=== PATIENT | female | born 1965 | race Caucasian/White ===

== ENCOUNTER 2016-10-26 20:47 | Emergency (ER) | payer OTHER ==
[~2016-10-26] VITALS: Ht 165.1 cm; Wt 59.0 kg
[2016-10-26 21:00] VITALS: BP 132/80
--- NOTE | 2016-10-26 21:44 | RADIOLOGY REPORT ---
EXAMINATION: XR CHEST CLINICAL INFORMATION: Cough. COMPARISON: None TECHNIQUE: 2 views of the chest were obtained. FINDINGS: No significant abnormality is noted involving the heart, lungs, mediastinum, bony thorax or soft tissues. IMPRESSION: Unremarkable chest examination.
--- NOTE | 2016-10-26 22:13 | ED INFLUENZA/URI COMPLAINT ---
History of Present Illness General Chief Complaint: Upper Respiratory Sx/Fever Stated Complaint: COUGHING,CHEST CONGESTION Vital Signs & Intake/Output Vital Signs & Intake/Output Vital Signs Date Time Temp Pulse Resp B/P Pulse O2 O2 Flow FiO2 Ox Delivery Rate 10/26 2100 97.9 97 15 132/80 100 Room Air Allergies Coded Allergies: Penicillins (Severe, HIVES 10/26/16) Triage Note: PT TO ED FOR STUFFY NOSE AND COUGH FOR PAST FEW DAYS. 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
--- NOTE | 2016-10-26 22:13 | ED INFLUENZA/URI COMPLAINT ---
History of Present Illness General Chief Complaint: Upper Respiratory Sx/Fever Stated Complaint: COUGHING,CHEST CONGESTION Source: patient Exam Limitations: no limitations Vital Signs & Intake/Output Vital Signs & Intake/Output Vital Signs Date Time Temp Pulse Resp B/P Pulse O2 O2 Flow FiO2 Ox Delivery Rate 10/26 2100 97.9 97 15 132/80 100 Room Air Allergies Coded Allergies: Penicillins (Severe, HIVES 10/26/16) Reconcile Medications Albuterol Sulfate (Ventolin Hfa) 90 MCG HFA.AER.AD 2 PUF INH Q4-6 PRN PRN COUGH Benzonatate (Tessalon Perle) 100 MG CAPSULE 1 CAP PO TID PRN COUGH Fluticasone Propionate (Flonase Allergy Relief) 50 MCG/ACTUATION SPRAY.SUSP 1 SPRAY HARINDER DAILY PRN CONGESTION Triage Note: PT TO ED FOR STUFFY NOSE AND COUGH FOR PAST FEW DAYS. Triage Nurses Notes Reviewed? yes Onset: Gradual Duration: constant Timing: recent history Severity: moderate Severity Numbers: 5 Prior Episodes/Possible Cause: chronic episodes No Modifying Factors: none HPI: Patient is a 51-year-old female who presents emergency room with a 2 to three- day history of nonproductive cough runny nose not feeling well patient is AN EVERYDAY smoker Denies any positive sick contacts. Denies any chest pain and arm pain jaw pain nausea vomiting sore throat Patient states that she is homeless and was requesting housing (DANIEL URBINA) Past History Travel History Traveled to [place] past 21 day No Medical History Any Pertinent Medical History? 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 No (DANIEL URBINA) Review of Systems Review of Systems Constitutional: Reports: see HPI. EENTM: Reports: nasal congestion. Respiratory: Reports: see HPI, cough. Denies: short of breath. Cardiovascular: Reports: see HPI. Denies: chest pain. GI: Reports: no symptoms. Genitourinary: Reports: no symptoms. Musculoskeletal: Reports: no symptoms. Skin: Reports: no symptoms. Neurological/Psychological: Reports: no symptoms. Hematologic/Endocrine: Reports: no symptoms. Immunologic/Allergic: Reports: no symptoms. All Other Systems: Reviewed and Negative (DANIEL URBINA) Physical Exam Physical Exam General Appearance: no apparent distress, alert, comfortable Ears, Nose, Throat: moist mucous membrane, hearing grossly normal, Tympanic normal, pharynx normal, nasal congestion, nasal drainage Comments: Well-developed well-nourished person in no acute distress HEENT: extraocular motion intact, no nystagmus. Pupils equally round and reactive to light and accommodation. Nose is atraumatic. External auditory canal and Tympanic membranes clear. Pharynx normal. No swelling or edema. Neck: Supple, no lymphadenopathy, normal range of motion without pain or tenderness Back: Nontender, no CVA tenderness. Cardiovascular: Regular rate and rhythms no murmurs rubs or gallops, normal JVP Respiratory: Chest nontender. No respiratory distress.breath sounds clear to auscultation bilaterally Abdomen: Soft, nontender nondistended, no appreciable organomegaly. Normal bowel sounds. No ascites Extremity: No edema, no calf tenderness to palpation, normal and equal pulses. Neuro: Alert oriented x3, motor sensory normal, Skin: No appreciable rash on exposed skin, skin is warm and dry. Psych: Mood and affect is normal, memory and judgment is normal. Core Measures Severe Sepsis Present: No Septic Shock Present: No (DANIEL URBINA) Progress Differential Diagnosis: influenza, meningitis, neutropenia, otitis, pneumonia, pharyngitis, sinusitis Plan of Care: Patient currently looks well nontoxic-appearing afebrile Clear lungs auscultation patient was offered 211 phone number for housing assistance patient also was given [facility] practice and [employer] financial operations consultant business card assistance and was strongly advised to obtain health insurance. Upon discharge patient looks well no apparent distress and will comply with discharge instructions and had no questions Diagnostic Imaging: Viewed by Me: Radiology Read. Radiology Impression: no acute abnormality, no fracture Initial ED EKG: none Comments: PATIENT: TWAN KENNEDY PRESENT AGE: 51 PATIENT ACCOUNT NO: [id number] : 64 LOCATION: [facility] ORDERING PHYSICIAN: MARGARITO IGNACIO MD SERVICE DATE: 10/26/16 EXAM TYPE: RAD - XRY-CHEST XRAY, PA AND LATERAL EXAMINATION: XR CHEST CLINICAL INFORMATION: Cough. COMPARISON: None TECHNIQUE: 2 views of the chest were obtained. FINDINGS: No significant abnormality is noted involving the heart, lungs, mediastinum, bony thorax or soft tissues. IMPRESSION: Unremarkable chest examination. DICTATED BY: THEO GALVAN,ZHANG (DANIEL URBINA) Departure Departure Disposition: HOME OR SELF CARE Condition: Stable Clinical Impression Primary Impression: Upper respiratory infection Referrals: PATIENT HAS NO PRIMARY CARE DR (PCP/Family) Additional Instructions: As discussed BEGIN the prescription of Tessalon Perles for cough Flonase for congestion and Ventolin for shortness of breath. Please call 211 for housing Please call the [facility] financial operations consultant phone number from the business card is provided to the emergency room. If symptoms worsen return to emergency him. Please also obtain health insurance one to obtain health insurance please call us so [facility] practice to establish a doctor Please discontinue smoking. 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 I have also reviewed all the pertinent lab results and diagnostic results. I agree with the findings and the plan of care as documented in the PA's/SEAT COVERS TRIMMER's documentation. [X] I have reviewed the ED Record and agree with the PA's/SEAT COVERS TRIMMER's documentation. [] Additions or exceptions (if any) to the PAs/SEAT COVERS TRIMMER's note and plan are summarized below: [] (MATEUS GALVAN,MARGARITO)
[2016-10-26] MEDS ORDERED: VENTOLIN HFA18 GM INH (23:28)
[2016-10-26] MEDS ORDERED: TESSALON PERLE100 M1 PO (23:28)
[2016-10-26] MEDS ORDERED: FLONASE ALLERG9.9 ML NAS (23:28)
== END 2016-10-26 23:31 ==
LOC: ERH 20:47
DX: J06.9 Acute upper respiratory infection, unspecified (principal); Z72.0 Tobacco use